=== PATIENT | female | born 1950 | race Caucasian/White ===

== ENCOUNTER 2017-04-19 20:25 | Observation (INO) ==
[2017-04-19] MEDS ORDERED: Aspirin 81 MG TAB.CHEW PO STA (21:04)
--- NOTE | 2017-04-19 21:08 | Emergency Department Note ---
Disposition Clinical Impression: Stable angina Chest pain Qualifiers: Chest pain type: unspecified Qualified Code(s): R07.9 - Chest pain, unspecified Disposition: Admitted As Inpatient Condition: Good Forms: ED Satisfaction Letter Time of Disposition: 23:53 Chest Pain HPI - General Chief Complaint: ED Chest Pain Stated Complaint: CHEST PAIN/NAUSEA/BEASLEY Time Seen by Provider: 04/19/17 20:47 Source: patient Mode of arrival: ambulatory Limitations: no limitations Vital Signs Reviewed: Yes Nursing Notes Reviewed: Yes - History of Present Illness HPI Narrative: Patient presents from home with acute onset of chest discomfort pain radiating up in the left jaw. Lasted less than 30 seconds. Patient took an aspirin at home nonresolution of symptoms shortly after that event. She presented to the emergency room with concern for cardiac related disease. Patient's symptoms on Saturday of this week similar presentation and she was concerned as one twice symptoms. Denies Any Recent Illnesses Denies Trauma Denies Fevers Chills Shortness of Breath Headache Vision Changes Nausea Vomiting or Diarrhea. Her Only Complaint This Time Is Chest Pain Has Resolved Prior to Coming into the Emergency Room Pt complaint: chest pain Onset (ago): Just [employer] Duration: now resolved Onset: during rest Pain Location: substernal, left chest Severity: none Severity scale (1-10): 0 Quality: aching, sharp Pain Radiation: jaw/teeth Improves with: nothing Worsens with: nothing Treatments prior to arrival chest pain: aspirin - Related Data Home Medications Medication Instructions Recorded Confirmed Aspirin 08/04/16 Blood Pressure Pills 08/04/16 PriLOSEC 08/04/16 Cholestyramine/Aspartame 4 gm PO DAILY 04/19/17 04/19/17 [Cholestyramine Light Packet] Lysine [l-Lysine] 250 mg PO MOFR 04/19/17 04/19/17 Oxybutynin Chloride [Ditropan Xl] 15 mg PO DAILY 04/19/17 04/19/17 Allergies Allergy/AdvReac Type Severity Reaction Status Date / Time metoprolol Allergy Hives Verified 04/19/17 20:44 All systems ED: reviewed and negative except as stated. Review of Systems: As Per HPI Constitutional: Denies: fever, chills Cardiovascular: Reports: chest pain. Denies: palpitations, dyspnea on exertion , orthopnea, edema Respiratory: Denies: cough, dyspnea Gastrointestinal: Denies: abdominal pain, nausea, vomiting, diarrhea Genitourinary: Denies: dysuria, frequency Musculoskeletal: Denies: back pain, neck pain Neurological: Denies: headache Endocrine: Denies: fatigue Chest Pain PMH - Past Medical History Medical history: Reports: GERD, hypertension Psychiatric history: Reports: no psych history - Social History Smoking Status: Never smoker Alcohol use: Reports: occasionally Drug use: Reports: none Physical Exam - General Limitations: no limitations General appearance: alert - Head Head exam: atraumatic, normocephalic, normal inspection - Neck Neck exam: Present: normal inspection, full ROM, trachea midline - Chest Chest inspection: Present: normal inspection, symmetric chest wall rise. Absent : tenderness - Respiratory Respiratory exam: Present: normal lung sounds bilaterally. Absent: respiratory distress, accessory muscle use - Cardiovascular Cardiovascular exam: Present: regular rate, normal rhythm, normal heart sounds - Abdominal Exam Abdominal exam: Present: soft, Non-Tender, normal bowel sounds. Absent: tenderness, distention, guarding, rebound, rigidity - Extremities Exam Extremities exam: Present: normal inspection, full ROM, normal capillary refill. Absent: tenderness - Back Exam Back exam: Present: normal inspection - Neurological Exam Neurological exam: Present: alert, oriented X3 - Psychiatric Psychiatric exam: Present: normal affect, normal mood - Skin Skin exam: Present: warm, dry, intact, normal color Course Course Narrative: Patient seen and examined the time of arrival. See history of present illness. 66-year-old female presents emergency room with intermittent chest discomfort that radiates up into her left jaw. She has a history of walking Parkinson White. She has never needed treatment for the past. She followed up with cardiology here. Dr. Ulices Heredia has evaluated her. No intervention recommended. Patient otherwise denies any other symptoms prior to these events over the last several days. On Saturday she had approximately 30 seconds of chest pain rating up into the jaw. It resolved on her own after taking an aspirin. Patient was symptom-free over the last several days and then today had acute onset of left-sided chest pain radiating up into the left jaw. Patient has no symptoms or complaints at this time. Vital signs reviewed and are stable. She is hypertensive but otherwise no acute abnormalities. Head is atraumatic patient speaking in full sentences lungs are clear heart is regular abdomen is soft nontender nondistended. Has no signs of pitting edema at this point she was all 4 extremities with purpose. Concern is noted for this being angina secondary to cardiac ischemia at this time. EKG was collected the triage process. Patient has known walking Parkinson's white with stable morphology comparison to an EKG done on 05/02/11. No acute changes here today. Patient had aspirin given here. No nitroglycerin needed at this time. Cardiac evaluation to be completed including chest x-ray troponin labs. Patient is otherwise stable. We will continue to monitor. Patient will most likely need admission the hospital for evaluation. She has not been seen by portfolio management marketing to greater than 10 years. Concern is noted for anginal equivalent based on symptoms and history. - Reevaluation(s) Reevaluation #1: Chest x-ray is negative. Troponin is 0. Symptoms have been controlled since coming to the emergency room. No intervention provided. The rest of her labs are otherwise benign. Patient will be admitted for ACS rule out at this time. Time: 23:21 Reevaluation #2: Patient discussed with the hospitalist Dr. baxter. Review the presentation symptoms medical history as well as intervention performed here. Also discuss EKG finding showing WPW with no acute morphology changes at this point. They are comfortable giving the patient the hospital this time for admission process. Labs reviewed including a negative troponin at this time. No other acute concerns or symptoms and at this time. Detailed review the presentation and she will review with the hospitals. Patient will be informed of the plan. Advised her to recommend admission. Patient understood this and was comfortable with the plan at that time. She has been chest pain-free while here. Patient will have admission computer this time. No symptoms here in the emergency room. Time: 23:53 Vital Signs Temperature 98.0 F 04/19/17 20:39 Pulse Rate 84 04/19/17 20:39 Respiratory Rate 16 04/19/17 20:39 Blood Pressure 188/79 04/19/17 20:39 O2 Sat by Pulse Oximetry 96 04/19/17 20:39 Temperature 98.0 F 04/19/17 20:39 Pulse Rate 84 04/19/17 20:53 Respiratory Rate 18 04/19/17 20:53 Blood Pressure 179/97 04/19/17 20:53 O2 Sat by Pulse Oximetry 93 04/19/17 20:53 Oxygen Delivery Oxygen Delivery Room Air Chest Pain - MDM Narrative Medical decision making narrative: Chest pain - Medical Records Medical records reviewed: Yes I reviewed the patient's medical records. - Lab Data Lab results reviewed: Yes I reviewed the patient's lab results. - Radiology Data Radiology results reviewed: Yes I reviewed the patient's radiology results. Chest x-ray is negative for acute intrathoracic related pathology - EKG Data EKG attestation: Yes I reviewed and interpreted this EKG. EKG shows normal: sinus rhythm, axis, QRS complexes, ST-T waves Rate: normal Rhythm: NSR [place]/QRS: normal T wave inversions noted in: I, aVL, v1, v2 When compared to previous EKG there are: no significant changes Interpretation: no acute changes, unchanged when compared to prior tracing (date ) Heart Score - Score History: Moderately Suspicious EKG: Non Specific repolarisation Disturbance Age: Greater than 65 Risk Factors: Equal/Greater than 3 risk factor or history of atherosclerotic disease Troponin: Less than normal limit HEART Score Total: 6
[2017-04-19 22:22] LABS: Basophils # 0.1 K/mcL (0.0-0.2); Basophils % 0.5 %; Eosinophils # 0.1 K/mcL (0.0-0.6); Eosinophils % 0.8 %; Hematocrit 41.3 % (35.3-44.9); Hemoglobin 13.9 g/dL (11.5-15.4); Immature Granulocytes % 0.4 % (0-4); Lymphocytes # 2.6 K/mcL (0.6-4.6); Lymphocytes % 24.3 %; Mean Corpuscular HGB Conc 33.7 g/dL (31.6-35.5); Mean Corpuscular Hemoglobin 28.2 pg (28.0-33.3); Mean Corpuscular Volume 83.8 fL (83.0-100.0); Mean Platelet Volume 9.7 fL (9.4-12.4); Monocytes # 0.7 K/mcL (0.0-1.3); Monocytes % 6.3 %; Neutrophils # 7.4 K/mcL (1.6-8.9); Platelet Count 323 K/mcL (140-400); Red Blood Count 4.93 M/mcL (3.82-4.97); Segmented Neutrophils % 67.7 %
[2017-04-19 22:33] LABS: BUN/Creatinine Ratio 12 (6-26); Blood Urea Nitrogen 13 mg/dL (7-20); Calcium 10.1 mg/dL (8.6-10.8); Carbon Dioxide 25 mEq/L (19-29); Chloride 105 mEq/L (98-109); Glucose 117 mg/dL (70-99); Osmolality,Calculated 293 (280-300); Potassium 3.8 mEq/L (3.5-4.5); Sodium 141 mEq/L (136-145); eGFR For African Americans > 60 (> 60); eGFR For Non-African Americans 52 (> 60)
[2017-04-19 22:56] LABS: Thyroid Stimulating Hormone 1.889 mcIU/mL (0.350-4.840)
[2017-04-20] MEDS ORDERED: Ondansetron 4 MG/2 ML VIAL IVP PRN (00:31)
[2017-04-20] MEDS ORDERED: Acetaminophen 325 MG TABLET PO PRN (00:31)
--- NOTE | 2017-04-20 00:35 | Internal Med History&Physical ---
<Paola Lambert - Last Filed: 04/20/17 00:45> Date of Encounter: 04/20/17 Time of Encounter: 00:00 Assessment and Plan (1) Chest pain Current visit: Yes Status: Acute - Two episodes of mid sternal sharp chest pain at rest radiating to back and jaw and relieved by aspirin. - Patient does have significant cardiovascular risk factors including HTN, HLD, peripheral vascular disease s/p angioplasty and family history. - HEART score at least 4, indicating the admission for further evaluation. - No chest pain at this time. - Initial troponin is negative and no significant ischemic change on EKG compared to prior one. - Continue telemetry monitoring and trend troponin. - If troponin remains negative, will obtain stress test in the AM for further evaluation. - Possible discharge if negative stress test. - Continue aspirin and lisinopril. Not on beta ruel or statin due to allergy to metoprol and statin. Qualifiers: Chest pain type: unspecified Qualified Code(s): R07.9 - Chest pain, unspecified (2) Hypertension Current visit: Yes Status: Chronic - Continue home antihypertensive regimen. Qualifiers: Hypertension type: essential hypertension Qualified Code(s): I10 - Essential (primary) hypertension (3) Hyperlipidemia Current visit: Yes Status: Chronic - Patient reports having history of high triglycerides. - Check lipid panel. - Not on statin because of associated muscle weakness in the past. Qualifiers: Hyperlipidemia type: pure hyperglyceridemia Qualified Code(s): E78.1 - Pure hyperglyceridemia (4) Hiatal hernia Current visit: Yes Status: Chronic - Continue home dose PPI. 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 - Per Dr. Ulices Heredia's eCW note on 03/13/17, it's WPW without symptoms and no further testing needed. (6) DVT prophylaxis Current visit: Yes Status: Acute - SQ heparin. Internal Medicine - H&P: HPI Chief complaint: Chest pain Admitted From: Emergency Dept Plans for Post Hospital Care: Home History of present illness: Ms. Darden is a 67 year old female with PMH of HTN, HLD, PVD s/p BLE angioplasty, WPW and hiatal hernia. Patient presented with complaint of chest pain. Patient reports having two episodes of chest pain, one on Saturday (04/15/17) and another on last night (04/19/17). Patient describes it as mid substernal sharp chest pain radiating to back and jaw lasting 15-20 minutes. Both episodes happened when patient were sitting and relieved by aspirin. It's associated with shortness of breath, nausea and facial flushing but no lightheadedness, syncope or diaphoresis. Patient also notices fatigue the next day after Saturday' s episode. Patient reports these chest pain are new to her and different from occasional chest pain from her hiatal hernia. Patient reports her last exercise stress test and echocardiogram was 10 years ago and were normal except WPW. Patient takes daily baby-dose aspirin at home but not on statin because that gave her muscle weakness in the past. Patient is full code. Past Med Surg Social Fam HX - Past Medical History Medical history: GERD, hypertension, peripheral artery disease Psychiatric history: no psych history - Past Surgical History Surgical History: angioplasty/stent (BLE angioplasty, no known cardiac stent), cholecystectomy, hysterectomy, sinus surgery - Social History Smoking Status: Never smoker Smokeless Tobacco Status: No Alcohol use: occasionally Drug use: none - Family History Brother Living Status: Age at : 47 Cause of : DC Father Living Status: Hx Family Medical Disorders: Yes (AAA) Internal Medicine - H&P: Meds Amlodipine Besylate/Benazepril [Lotrel 5-40 mg Capsule] 1 each PO DAILY [History] Aspirin Enteric Coated [Aspirin EC] 81 mg PO DAILY 08/04/16 [History] Omeprazole [PriLOSEC] 20 mg PO DAILY 08/04/16 [History] Cholestyramine/Aspartame [Cholestyramine Light Packet] 4 gm PO DAILY 04/19/17 [ History] Lysine [l-Lysine] 500 mg PO Q1W 04/19/17 [History] Oxybutynin Chloride [Ditropan Xl] 15 mg PO DAILY 04/19/17 [History] Allergies metoprolol Allergy (Verified 04/19/17 20:44) Hives All Systems PM: A 10-system review of systems was performed and is negative for pertinent findings except as documented above in the HPI. - Constitutional Constitutional: fatigue, no anorexia, no chills, no fever(s), no weight gain, no weight loss - EENT Eyes: no change in vision Ears: no decreased hearing Nose, mouth and throat: no dysphagia, no odynophagia - Cardiovascular Cardiovascular ROS IM: as per HPI, edema (Occasional edema, nothing unsual from before per patient), no lightheadedness, no syncope - Respiratory Respiratory: dyspnea, no cough, no hemoptysis - Gastrointestinal Gastrointestinal: nausea, no abdominal pain, no diarrhea, no hematochezia, no melena, no vomiting - Genitourinary Genitourinary: no difficulty urinating, no dysuria, no hematuria - Musculoskeletal Musculoskeletal ROS IM: no arthralgias, no myalgias - Integumentary Integumentary IM: no pruritus, no rash - Neurological Neurological ROS: no focal weakness, no numbness, no tingling - Hematologic/Lymphatic Hematologic/Lymphatic: no easy bleeding, no easy bruising - Constitutional Vitals: Temp Pulse Resp BP Pulse Ox 98.0 F 79 18 159/80 94 04/19/17 20:39 04/19/17 23:44 04/19/17 23:44 04/19/17 23:44 04/19/17 23:44 General appearance: Present: cooperative, A&O X 3, no acute distress, answers questions appropriately - Head Head exam: Present: atraumatic, normocephalic - Eye Eye exam: Present: EOMI, PERRL, conjuntiva pink, sclera anicteric - Neck Neck exam general surgery: Present: supple, trachea midline. Absent: lymphadenopathy - Respiratory Respiratory exam: Present: CTAB. Absent: accessory muscle use, rales, rhonchi, wheezes - Cardiovascular Cardiovascular exam: Present: RRR, +S1, +S2. Absent: diastolic murmur, gallop, rubs, systolic murmur - GI/Abdominal GI/Abdominal exam: Present: normal bowel sounds, soft, no peritoneal signs. Absent: distended, tenderness - Extremities Exam Extremities exam: Present: warm, radial pulses palpable and symmetrical. Absent : calf tenderness, cyanotic, pedal edema - Neurological Exam Neurological exam: Present: CN II-XII intact, oriented X3, no focal deficits. Absent: pronater drift, facial droop, speech deficit - Skin Skin exam: Present: dry, intact, warm Internal Med - H&P Results - Labs CBC & Chem 7: 04/19/17 22:10 04/19/17 22:10 <Neelam Goodwin - Last Filed: 04/20/17 01:56> Date of Encounter: 04/20/17 Time of Encounter: 00:30 Internal Medicine - H&P: HPI History of present illness: Ms. Darden is a 67 year old female All Systems PM: A 10-system review of systems was performed and is negative for pertinent findings except as documented above in the HPI. - Constitutional Vitals: Temp Pulse Resp BP Pulse Ox 98.0 F 79 17 159/80 94 04/19/17 20:39 04/19/17 23:44 04/20/17 00:54 04/20/17 00:54 04/19/17 23:44 Internal Med - H&P Results - Labs CBC & Chem 7: 04/19/17 22:10 04/19/17 22:10 - Attending Attestation I examined this patient and my medical decision-making was reviewed with the Resident Physician. I agree with the documented findings, disposition and treatment plan as described except to the extent set forth below. 67-year-old female with a history of peripheral vascular disease status post bilateral angioplasty many years ago, left heart catheter 10 years ago, history of [place] Parkinson's white and has been seeing Dr. Heredia of cardiology who presents with a chest pain evaluation. First chest pain symptoms began on Saturday described as midsternal in nature and subsiding within 10-20 minutes. She developed recurrent chest pain this evening while sitting at rest lasting for about 20 minutes, aspirin helped the pain. Pain with radiation to the jaw. Associated diaphoresis and palpitations. ROS 14 point review of systems reviewed as best as possible given presentation. Pertinent positive or negative as per HPI or otherwise reviewed as negative General - AAO x 3 Psych - Appropriate affect/speech. No agitation Eyes - ROXANE. Eye lids intact. No scleral icterus ENT - Oral mucosa pink, dentition intact. External ear clear/dry/intact. No thyromegaly Lymphatics - No cervical/inguinal lympadenopathy Neuro - No gross peripheral or central neuro deficits with intact CN 2-12 exam Heart - Sinus. RRR. S1 and S2 present. No added HS/murmurs appreciated. No elevated JVD appreciated. No calf swellings/erythema Lung - Adequate air entry b/l, No crackes/wheezes appreciated GI - Soft, non-tender. No hepatosplenomegaly/ascites. BS+ - No CVA/suprapubic tenderness or palpable bladder distension Skin - Intact. No rash/petechiae/ecchymosis. Warm extremities MSK - Joints with normal ROM. No joint swellings EKG reviewed personally, abnormal suspect chronic due to WPW, AFib Chest pain - trend trop - due to risk factors, stress testing in the morning Chronic issues: WPW CAD PAD HTN
[2017-04-20 04:16] LABS: BUN/Creatinine Ratio 14 (6-26); Blood Urea Nitrogen 14 mg/dL (7-20); Calcium 9.5 mg/dL (8.6-10.8); Carbon Dioxide 25 mEq/L (19-29); Chloride 106 mEq/L (98-109); Glucose 96 mg/dL (70-99); Osmolality,Calculated 294 (280-300); Potassium 3.7 mEq/L (3.5-4.5); Sodium 142 mEq/L (136-145); eGFR For African Americans > 60 (> 60); eGFR For Non-African Americans 56 (> 60)
[2017-04-20 04:17] LABS: Chol/HDL Ratio 7.1 (0-4.9)
[2017-04-20] MEDS: *HR* Heparin 5,000 UNIT/ML VIAL SQ SCH ×2 (06:02→14:42)
[2017-04-20] MEDS ORDERED: Lisinopril 20 MG TABLET PO SCH (09:00)
[2017-04-20] MEDS ORDERED: Aspirin Enteric Coated 81 MG Tablet PO SCH (09:00)
[2017-04-20] MEDS ORDERED: amLODIPine 5 MG TABLET PO SCH (09:00)
[2017-04-20] MEDS ORDERED: AMLODIPINE BESYLATE PO SCH (09:00)
[2017-04-20] MEDS ORDERED: [UNRECOGNIZED DRUG - OTHER] PO SCH (09:00)
[2017-04-20] MEDS ORDERED: BENAZEPRIL PO SCH (09:00)
--- NOTE | 2017-04-20 14:14 | Nuclear Medicine Stress Report ---
Exercise Nuclear Stress Name: Danika Darden Date of Study: 04/20/2017 Date: 1950 Ht: 61.0 in Medical Record#: [id number] Age: 66 Wt: 168.0 lb Gender: Female Order #: [id number] Location: [facility] IP Room: [facility] Supervising Provider: Belinda Rodrigues CNP Reading Physician: Jose G Eddy MD, [facility] Ordering Physician: Annie Parker CNP Primary Care Physician: Roc Cifuentes MD Stress Technologist: Evert Chin RRT, CCT Log Skidder: Tariq Phipps Indications: Chest Pain, Hx WPW Impression: Perfusion imaging was negative for ischemia or infarct. Patient has WPW and LVH with strain pattern at baseline. Strain pattern worsens with exercise most prominently with aVR ST elevation and inferolateral ST depression Patient had no chest pain with stress. No arrhythmias noted with stress. Gated EF = >70%. There is no evidence of TID. The LV is not dilated. History: Hypertension Stress Test Summary: Stress Test Type: Treadmill Protocol: Jose G Baseline Information: Initial Heart Rate: 79 Blood Pressure: 160/70 Stress Information: Stress Time: 6 min 00 sec Test Terminated Due to (primary): Dyspnea Maximum Blood Pressure: 196/80 Maximum Heart Rate: 146 Percent Maximum Heart Rate Achieved: 97 Double Product: 28,616 METS Reached: 7 Nuclear Summary: SPECT myocardial perfusion imaging using Tc99m Sestamibi given intravenously was performed at rest and following cardiac stress testing. The resting images were obtained following initial dose of 9.8 mCi. Following stress an additional dose of 33.9 mCi was given at peak exercise or 30 seconds post regadenoson infusion. Medication Given: Time Medication Dose Units Route Findings: Stress Note * Resting ECG demonstrated normal sinus rhythm with LVH with strain and WPW pattern * No baseline arrhythmias were noted. * Patient has WPW and LVH with strain pattern at baseline. Strain pattern worsens with exercise most prominently with aVR ST elevation and inferolateral ST depression * No chest pain or arrhythmias during stress. Hemodynamic responses * Normal hemodynamic responses to exercise stress. Study Quality * Study quality is average. Gated EF > 70% * Gated EF > 70%. NORMALS * Normal wall motion. * Normal segmental perfusion in stress. * Normal Segmental Perfusion in rest. TID * No evidence of transient ischemic dilatation. Updated by Jose G Eddy MD, FACC on 04/20/2017 1:54:42 PM electronically signed on 04/20/2017 2:08:29 PM with status of Final
[2017-04-20 14:59] VITALS: BP 135/72
--- NOTE | 2017-04-20 16:44 | Discharge Summary ---
Date of Encounter: 04/20/17 Time of Encounter: 16:15 - Discharge Diagnosis (1) Chest pain Priority: Primary Status: Resolved Comments: Patient denied chest pain or shortness of breath while admitted. Troponins negative 2. Chest x-ray negative. Stress test negative. ACS ruled out. Patient concerned for ongoing, several times a week chest pain. She was instructed to follow up outpatient with her instrument repairer steam [employer]. 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 Patient has an intolerance of statins secondary to muscle weakness. Recommend follow-up outpatient for possible consideration of fenofibrate. Qualifiers: Hyperlipidemia type: pure hyperglyceridemia Qualified Code(s): E78.1 - Pure hyperglyceridemia (5) GERD (gastroesophageal reflux disease) Priority: Secondary Status: Chronic Comments: states she has symptoms often and attributes them to her hiatal hernia. Followup outpatient. On Omeprazole. (6) Hiatal hernia Priority: Secondary Status: Chronic (7) DVT prophylaxis Priority: Primary Status: Acute Comments: Subcutaneous heparin while admitted - Discharge Medications Home Medications: Amlodipine Besylate/Benazepril [Lotrel 5-40 mg Capsule] 1 each PO DAILY [History] Aspirin Enteric Coated [Aspirin EC] 81 mg PO DAILY 08/04/16 [History] Omeprazole [PriLOSEC] 20 mg PO DAILY 08/04/16 [History] Cholestyramine/Aspartame [Cholestyramine Light Packet] 4 gm PO DAILY 04/19/17 [ History] Lysine [l-Lysine] 500 mg PO Q1W 04/19/17 [History] Oxybutynin Chloride [Ditropan Xl] 15 mg PO DAILY 04/19/17 [History] Allergies/Adverse Reactions: Allergies metoprolol Allergy (Verified 04/19/17 20:44) Hives Procedures/tests Complete & Pending: Procedures Performed prior 72 hours Category Date Time Status NM brayden perf SPECT multi [NM] Routine Exams 04/20/17 00:34 Taken SP exercise nuclear stress Routine Y 04/20/17 00:34 Completed Date of admission: 04/20/17 00:08 Primary care physician: Roc Cifuentes MD Discharging clinician: Annie Parker Anticipated date of discharge: 04/20/17 - Patient Status Disposition: Home, Self-Care Condition: Good Functional capacity at discharge: independent ambulation Overall status at discharge: patient is back to baseline - Discharge Instructions Follow Up With: Roc Cifuentes MD [Primary Care Provider] - Ashok Vora DO [Partnered Physician] - Additional Instructions: Follow-up with primary care provider within one to 2 weeks, follow up with instrument repairer [employer] within 1-2 weeks - Diet and Activity Activity: increase activity as tolerated Diet: low fat, low cholesterol, low salt diet Hospital course: Ms. Darden is a 67 year old female with past medical history of hypertension, hyperlipidemia, PVD status post bilateral lower extremity angioplasty, WPW, hiatal hernia, GERD, cholecystectomy. Patient presented to the emergency room for chief complaint of chest pain. Patient reports having 2 episodes of chest pain this week with the most recent one on the night prior to presentation. She described as mid, substernally located, sharp, radiating to her back and jaw and lasted approximately 15-20 minutes. Both episodes occurred while the patient was sitting and both were relieved with aspirin. Associated symptoms of shortness of breath, nausea, and facial flushing. She denied lightheadedness , syncope, or diaphoresis. Patient also endorsed fatigue the next day after this episode. She states that these chest pains are new to her in different from her occasional chest pain that she attributes to her hiatal hernia. Workup in the emergency department unremarkable other than accelerated hypertension with initial blood pressure 188/79. Patient was admitted to the hospitalist service for further evaluation and management. Chest x-ray negative. Troponins negative 2. Exercise nuclear stress test negative for ischemia or infarct and revealed an ejection fraction greater than 70%. Patient denied chest pain or shortness of breath throughout this admission and she tolerated a regular diet. She was normotensive at time of discharge with resumption of her regular home medications. Patient and her endorsed concern regarding the cause of her chest pain episodes-recommend a follow-up outpatient with instrument repairer [employer] and primary care provider. ACS ruled out. Could be attributed to uncontrolled reflux or her accelerated hypertension. Recommend daily blood pressure checks at home and keeping a log for her primary care team. She was discharged home in stable condition with close outpatient follow-up recommended. ITS Impressions Chest X-Ray 04/19/17 20:44 IMPRESSION: No acute process. D/ / Aldair Burr MD / Aldair Burr MD Interpreting Provider: Aldair Burr MD Exercise Nuclear Stress Impression: Perfusion imaging was negative for ischemia or infarct. Patient has WPW and LVH with strain pattern at baseline. Strain pattern worsens with exercise most prominently with aVR ST elevation and inferolateral ST depression Patient had no chest pain with stress. No arrhythmias noted with stress. Gated EF = >70%. There is no evidence of TID. The LV is not dilated. - Time Spent with Patient Total time spent providing and/or coordinating discharge services: - Constitutional Vitals: Temp Pulse Resp BP Pulse Ox 98.2 F 73 16 135/72 100 04/20/17 14:56 04/20/17 14:56 04/20/17 14:56 04/20/17 14:56 04/20/17 14:56 General appearance: Present: cooperative, A&O X 3, pleasant, no acute distress, answers questions appropriately - Head Head exam: Present: atraumatic, normocephalic - Eye Eye exam: Present: PERRL, conjuntiva pink, sclera anicteric Pupils: Present: PERRL - Neck Neck exam general surgery: Present: supple, trachea midline. Absent: lymphadenopathy - Respiratory Respiratory exam: Present: CTAB. Absent: accessory muscle use, rales, respiratory distress, rhonchi, wheezes - Cardiovascular Cardiovascular exam: Present: RRR, +S1, +S2. Absent: diastolic murmur, gallop, rubs, systolic murmur - GI/Abdominal GI/Abdominal exam: Present: normal bowel sounds, soft, no peritoneal signs. Absent: distended, tenderness - Extremities Exam Extremities exam: Present: warm, radial pulses palpable and symmetrical. Absent : calf tenderness, cyanotic, pedal edema - Neurological Exam Neurological exam: Present: alert, CN II-XII intact, normal gait, oriented X3, no focal deficits, strengths equal and symetr throughout. Absent: pronater drift, facial droop, speech deficit - Skin Skin exam: Present: dry, intact, normal color, warm
--- NOTE | 2017-04-21 12:54 | Electrocardiograph Report ---
[address] [place] [address] Test Date: 2017-04-19 Pat Name: Danika Darden Department: [id number] Room: 3B38 Gender: F [employer]: Golden : 1950 Requested By: Ulices Wang Order Number: [id number] Reading MD: Bella Franks Measurements Intervals [place] Rate: 77 P: [place]: 0 QRS: -36 QRSD: 130 T: 133 QT: 403 QTc: 435 Interpretive Statements SINUS RHYTHM SHORT [place] INTERVAL WITH DELTA WAVE AND WPW PATTERN LEFT AXIS DEVIATION POSSIBLE LEFT VENTRICULAR HYPERTROPHY ST DEVIATION AND MODERATE T-WAVE ABNORMALITY Electronically Signed On 04-21-2017 12:52:48 EDT by Bella Franks
== END 2017-04-20 17:05 | disposition home or self-care (01) ==
LOC: 3BNU 20:25 → EMEROO 20:25 → 3BNU 04-20 01:09
PROVIDERS: ADMIT Internal Medicine; ATTEND Nurse Practitioner Family